=== PATIENT | male | born 1965 | race Caucasian/White ===

== ENCOUNTER 2024-02-13 07:40 | Outpatient (AMB) | payer MEDICAID, SELFPAY ==
[2024-02-13 08:02] VITALS: BP 135/88; PULSE 90; RESP 19; TEMP 36.4; O2SAT 95; BMI 31.7
--- NOTE | 2024-02-13 08:02 | ORTHONT_ITS ---
Vital signs 02/13/24 08:02 Height 1.88 m Height Method Stated Weight 112.264 kg Weight Measurement Method Standing Scale BMI 31.7 BP 135/88 H Blood Pressure Source Automatic Cuff Blood Pressure Location Right Upper Arm Position Sitting Respiration 19 Pulse 90 Pulse Source Monitor Temp 97.5 F Temp Source Temporal Artery Scan Pulse Oximetry (%) 95 Oxygen Delivery Method Room Air Med/Allergies Allergies & Medications Allergies No Known Allergies Allergy (Verified 02/13/24 08:03) Medication Reconciliation meloxicam 7.5 mg tablet 7.5 mg PO QDAY #45 tabs 02/13/24 [Rx] Subjective Visit Visit for: new patient and knee Immunization / Flu Flu Vaccine in the Last 12 Months: No Flu Vaccine Exclusion Criteria: Refused by Patient and No Exclusion Criteria History of Present Illness Chief complaint: BILATERAL KNEE PAIN Patient is a pleasant 58-year-old male with bilateral knee pain worse on the right. He has tried Ibuprofen. He would notices that there is some grinding and clicking in his knee. He reports the pain is still tolerable but quite annoying. He has not had formal physical therapy. 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 Exam Exam Patient is in no acute distress and is cooperative with the examination today. Breathing is nonlabored. In no respiratory distress. Bilateral extremities were evaluated and demonstrates sensation intact to light touch. Palpable pedal pulses are present. No significant edema is present. Bilateral hips were examined. The patient has no pain with log roll of the hips. Internal rotation to 30 degrees and external rotation to 30 degrees is painless. Negative FADIR. The left knee was examined. The left knee is in [varus] alignment. Range of motion from [0-115] degrees. Knee is stable to varus and valgus as well as AP translation with <5mm. Patient has a [negative] McMurrays. There is [no] pain with patellofemoral compression and [no] crepitus noted. The knee is [tender] to palpation [medially]. The right knee was also examined. The right knee is in [varus] alignment. Range of motion from [0-120] degrees. Knee is stable to varus and valgus as well as AP translation with <5mm. Patient has a [negative] McMurrays. There is [no] pain with patellofemoral compression and [no] crepitus noted. The knee is [tender] to palpation [medially]. Patient is nontender over the patella Bilateral knee x-rays were dated 12/14/2023. This demonstrates relatively preserved joint spaces. These are nonweightbearing x-rays. The x-ray report says that there is a age-indeterminate fracture I cannot see this. Assessment and Plan Problem List (1) Degenerative arthritis of knee, bilateral: Status: Acute Plan: Patient is a pleasant 58-year-old male with bilateral knee pain and likely bilateral knee arthritis. We are obtaining x-rays that are weightbearing and are waiting for his MRI to get done. We will see him back likely for injections at the next visit. 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
== END 2024-02-13 08:39 | disposition home or self-care (01) ==
PROVIDERS: Supervising Provider Orthopaedic Surgery Adult Reconstructive Orthopaedic Surgery; Visit Provider Orthopaedic Surgery Adult Reconstructive Orthopaedic Surgery
DX: M17.0 Bilateral primary osteoarthritis of knee (principal); M25.561 Pain in right knee; M25.562 Pain in left knee
CPT/HCPCS: 99203; G0463

== ENCOUNTER 2024-03-08 12:59 | Outpatient (AMB) | payer MEDICAID, SELFPAY ==
[2024-03-08 13:08] VITALS: BP 141/104; PULSE 99; RESP 19; TEMP 36.8; O2SAT 97; BMI 31.9
--- NOTE | 2024-03-08 13:08 | ORTHONT_ITS ---
Vital signs 03/08/24 13:08 Height 1.88 m Height Method Stated Weight 113.001 kg Weight Measurement Method Standing Scale BMI 31.9 BP 141/104 H Blood Pressure Source Automatic Cuff Blood Pressure Location Right Upper Arm Position Sitting Respiration 19 Pulse 99 Pulse Source Monitor Temp 98.2 F Temp Source Temporal Artery Scan Pulse Oximetry (%) 97 Oxygen Delivery Method Room Air Med/Allergies Allergies & Medications Allergies No Known Allergies Allergy (Verified 03/08/24 13:09) Medication Reconciliation meloxicam 7.5 mg tablet 7.5 mg PO QDAY #45 tabs 03/08/24 [Rx] Subjective Visit Visit for: follow up visit, knee (BILATERAL) and MRI (RESULTS) Immunization / Flu Flu Vaccine in the Last 12 Months: No Flu Vaccine Exclusion Criteria: No Exclusion Criteria History of Present Illness Chief complaint: MRI RESULTS/F.U BILATERAL KNEE PAIN Patient is a pleasant 58-year-old male with bilateral knee pain worse on the right. He has tried Ibuprofen. He would notices that there is some grinding and clicking in his knee. He reports the pain is still tolerable but quite annoying. He has not had formal physical therapy. 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 Exam Exam Patient is in no acute distress and is cooperative with the examination today. Breathing is nonlabored. In no respiratory distress. Bilateral extremities were evaluated and demonstrates sensation intact to light touch. Palpable pedal pulses are present. No significant edema is present. Bilateral hips were examined. The patient has no pain with log roll of the hips. Internal rotation to 30 degrees and external rotation to 30 degrees is painless. Negative FADIR. The left knee was examined. The left knee is in [varus] alignment. Range of motion from [0-115] degrees. Knee is stable to varus and valgus as well as AP translation with <5mm. Patient has a [negative] McMurrays. There is [no] pain with patellofemoral compression and [no] crepitus noted. The knee is [tender] to palpation [medially]. The right knee was also examined. The right knee is in [varus] alignment. Range of motion from [0-120] degrees. Knee is stable to varus and valgus as well as AP translation with <5mm. Patient has a [negative] McMurrays. There is [no] pain with patellofemoral compression and [no] crepitus noted. The knee is [tender] to palpation [medially]. Patient is nontender over the patella Bilateral knee x-rays were dated 12/14/2023. This demonstrates relatively preserved joint spaces. These are nonweightbearing x-rays. The x-ray report says that there is a age-indeterminate fracture I cannot see this. Bilateral knee MRIs were reviewed. This demonstrates degenerative meniscal tears on both knees. Assessment and Plan Problem List (1) Degenerative arthritis of knee, bilateral: Status: Acute Plan: Patient is a pleasant 58-year-old male with bilateral knee pain and likely bilateral knee arthritis. He has degenerative meniscal tears of both knees. We discussed nonoperative and operative options. We recommend anti-inflammatories and injections if needed. We will start on this for now. He does not have severe arthritis (2) Bilateral knee pain: Status: Acute Office Procedures GNS Level of Care Nursing/Assessment Patient Status: Established Patient Nursing Assessment/Reassesment: Medication Reconciliation, Update PMH in EMR and Vital Signs Coordination of Care: Complex Care and Chronic Disease 1-5, Education Complex Pt/Fam, Consent,records obtained, informed consent, 1 Ins Authorization, Results/Orders obtained and Staff clarify orders Established Patient Charge Established Patient Point Assignment: 110 Established Patient Point Charge: EP Level 3 (80-115) Past Medical History Past Medical History Have you ever been diagnosed with any of the following: Respiratory Problems Smoking: No Smoking Exposure: No
== END 2024-03-08 13:56 | disposition home or self-care (01) ==
PROVIDERS: Supervising Provider Orthopaedic Surgery Adult Reconstructive Orthopaedic Surgery; Visit Provider Orthopaedic Surgery Adult Reconstructive Orthopaedic Surgery
DX: M17.0 Bilateral primary osteoarthritis of knee (principal); M25.562 Pain in left knee; M25.561 Pain in right knee; S83.207D Unspecified tear of unspecified meniscus, current injury, left knee, subsequent encounter; S83.206D Unspecified tear of unspecified meniscus, current injury, right knee, subsequent encounter; X58.XXXD Exposure to other specified factors, subsequent encounter
CPT/HCPCS: 99213; G0463

== ENCOUNTER 2024-09-12 10:37 | Outpatient (AMB) | payer MEDICAID, SELFPAY ==
[2024-09-12 10:50] VITALS: BP 150/94; PULSE 89; RESP 18; TEMP 36.9; O2SAT 95; BMI 32.1
--- NOTE | 2024-09-12 10:50 | PD.ORTHCLVIS ---
Vital signs 09/12/24 10:50 Height 1.88 m Height Method Stated Weight 113.653 kg Weight Measurement Method Standing Scale BMI 32.1 BP 150/94 H Blood Pressure Source Automatic Cuff Blood Pressure Location Left Upper Arm Position Sitting Respiration 18 Pulse 89 Pulse Source Monitor Temp 98.4 F Temp Source Temporal Artery Scan Pulse Oximetry (%) 95 Oxygen Delivery Method Room Air Med/Allergies Allergies & Medications Allergies No Known Allergies Allergy (Verified 09/12/24 10:51) Medication Reconciliation meloxicam 7.5 mg tablet 7.5 mg PO QDAY #45 tabs 03/08/24 [Rx Confirmed 09/12/24] meloxicam 15 mg tablet 15 mg PO QDAY #60 tabs 09/12/24 [Rx] Exam Exam Patient is in no acute distress and is cooperative with the examination today. Breathing is nonlabored. In no respiratory distress. Bilateral extremities were evaluated and demonstrates sensation intact to light touch. Palpable pedal pulses are present. No significant edema is present. Bilateral hips were examined. The patient has no pain with log roll of the hips. Internal rotation to 30 degrees and external rotation to 30 degrees is painless. Negative FADIR. The left knee was examined. The left knee is in [varus] alignment. Range of motion from [0-115] degrees. Knee is stable to varus and valgus as well as AP translation with <5mm. Patient has a [negative] McMurrays. There is [no] pain with patellofemoral compression and [no] crepitus noted. The knee is [tender] to palpation [medially]. The right knee was also examined. The right knee is in [varus] alignment. Range of motion from [0-120] degrees. Knee is stable to varus and valgus as well as AP translation with <5mm. Patient has a [negative] McMurrays. There is [no] pain with patellofemoral compression and [no] crepitus noted. The knee is [tender] to palpation [medially]. Patient is nontender over the patella Bilateral knee x-rays were dated 12/14/2023. This demonstrates relatively preserved joint spaces. These are nonweightbearing x-rays. The x-ray report says that there is a age-indeterminate fracture I cannot see this. Bilateral knee MRIs were reviewed. This demonstrates degenerative meniscal tears on both knees. Assessment and Plan Problem List (1) Degenerative arthritis of knee, bilateral: Status: Acute Plan: Patient is a pleasant 58-year-old male with bilateral knee pain and likely bilateral knee arthritis. He has degenerative meniscal tears of both knees. We discussed nonoperative and operative options. I would like to get a weightbearing x-ray today. I would also like to get authorization for injections at the next visit. He would like to try them now. (2) Bilateral knee pain: Status: Acute Office Procedures GNS Level of Care Nursing/Assessment Patient Status: Established Patient Nursing Assessment/Reassesment: Medication Reconciliation, Update PMH in EMR and Vital Signs Coordination of Care: Complex Care and Chronic Disease 1-5, Education Complex Pt/Fam, Consent,records obtained, informed consent, Results/Orders obtained and Staff clarify orders Established Patient Charge Established Patient Point Assignment: 95 Established Patient Point Charge: Level 3 (80-115) MA Intake Visit Data Collection New Patient or Established: Established Patient (seen at [facility] within 3 years) Reason for Visit:: BL KNEE F/U REQ RX REFILLS Seen by Clinical Staff ONLY (RN/MA): No PCP or OBGYN visit in last 3 months: Yes Hx Now: No Do You Feel Safe at Home: Yes Authorities Contacted: N/A Questionairres Past Medical History Past Medical History Have you ever been diagnosed with any of the following: Respiratory Problems Smoking: No Smoking Exposure: No Subjective Visit Visit for: follow up visit, knee (BILATERAL) and other (specify) (RX REFILLS) Immunization / Flu Flu Vaccine in the Last 12 Months: No Flu Vaccine Exclusion Criteria: No Exclusion Criteria History of Present Illness Chief complaint: bl knee pain Pain Pain level (0-10): 6 Pain duration: ON AND OFF Pain location: inside (medial), outside (lateral) and anterior Pain quality: sharp, dull and aching Pain timing: night and increases with activity Associated signs & symptoms: none Ambulatory data Ambulatory device: none Treatments Improvement with previous injections: No Improvement with PT: No Improvement with NSAIDS: no Review of Systems Review of Systems: All systems negative unless otherwise noted in HPI.
--- NOTE | 2024-09-12 11:03 | XR_ITS ---
Examination: Bilateral knees 2 views Right lateral knee left lateral knee 2 views Bilateral axial knees single view TECHNIQUE: Bilateral AP knees standing single view, bilateral PA knees standing single view flexion Standing right lateral knee left lateral knee 2 views Bilateral axial knees single view total 5 views Date and time: September 12, 2024 1115 hours INDICATIONS: Bilateral knee pain beginning 2 weeks ago. FINDINGS: Bilateral moderate narrowing medial joint spaces No fractures Moderate narrowing bilateral patellofemoral joints No patellar dislocation IMPRESSION: Bilateral moderate narrowing medial joint spaces Bilateral moderate narrowing patellofemoral joints
== END 2024-09-12 11:07 | disposition home or self-care (01) ==
LOC: HODSRG 10:37
PROVIDERS: Supervising Provider Orthopaedic Surgery Adult Reconstructive Orthopaedic Surgery; Visit Provider Orthopaedic Surgery Adult Reconstructive Orthopaedic Surgery
DX: M17.0 Bilateral primary osteoarthritis of knee (principal)
CPT/HCPCS: 73564; 99213; G0463

== ENCOUNTER 2024-10-01 08:42 | Outpatient (AMB) | payer MEDICAID, SELFPAY ==
[2024-10-01 08:57] VITALS: BP 156/98; PULSE 80; RESP 18; TEMP 36.4; O2SAT 95; BMI 32.3
--- NOTE | 2024-10-01 08:57 | PD.ORTHCLVIS ---
Vital signs 10/01/24 08:57 Height 1.88 m Height Method Stated Weight 114.419 kg Weight Measurement Method Standing Scale BMI 32.3 BP 156/98 H Blood Pressure Source Automatic Cuff Blood Pressure Location Left Upper Arm Position Sitting Respiration 18 Pulse 80 Pulse Source Monitor Temp 97.5 F Temp Source Temporal Artery Scan Pulse Oximetry (%) 95 Oxygen Delivery Method Room Air Med/Allergies Allergies & Medications Allergies No Known Allergies Allergy (Verified 10/01/24 08:58) Medication Reconciliation meloxicam 15 mg tablet 15 mg PO QDAY #60 tabs 09/12/24 [Rx] Exam Exam Patient is in no acute distress and is cooperative with the examination today. Breathing is nonlabored. In no respiratory distress. Bilateral extremities were evaluated and demonstrates sensation intact to light touch. Palpable pedal pulses are present. No significant edema is present. Bilateral hips were examined. The patient has no pain with log roll of the hips. Internal rotation to 30 degrees and external rotation to 30 degrees is painless. Negative FADIR. The left knee was examined. The left knee is in [varus] alignment. Range of motion from [0-115] degrees. Knee is stable to varus and valgus as well as AP translation with <5mm. Patient has a [negative] McMurrays. There is [no] pain with patellofemoral compression and [no] crepitus noted. The knee is [tender] to palpation [medially]. The right knee was also examined. The right knee is in [varus] alignment. Range of motion from [0-120] degrees. Knee is stable to varus and valgus as well as AP translation with <5mm. Patient has a [negative] McMurrays. There is [no] pain with patellofemoral compression and [no] crepitus noted. The knee is [tender] to palpation [medially]. Patient is nontender over the patella Bilateral knee x-rays were dated 12/14/2023. This demonstrates relatively preserved joint spaces. These are nonweightbearing x-rays. The x-ray report says that there is a age-indeterminate fracture I cannot see this. Bilateral knee MRIs were reviewed. This demonstrates degenerative meniscal tears on both knees. Assessment and Plan Problem List (1) Degenerative arthritis of knee, bilateral: Status: Acute Plan: Patient is a pleasant 58-year-old male with bilateral knee pain and likely bilateral knee arthritis. He has degenerative meniscal tears of both knees. We discussed nonoperative and operative options. He is doing well with conservative treatment. He reports all the pain is gone away and he is very happy (2) Bilateral knee pain: Status: Acute Office Procedures GNS Level of Care Nursing/Assessment Patient Status: Established Patient Nursing Assessment/Reassesment: Medication Reconciliation, Update PMH in EMR and Vital Signs Coordination of Care: Complex Care and Chronic Disease 1-5, Education Complex Pt/Fam, Consent,records obtained, informed consent, Results/Orders obtained and Staff clarify orders Established Patient Charge Established Patient Point Assignment: 95 Established Patient Point Charge: EP Level 3 (80-115) MA Intake Visit Data Collection New Patient or Established: Established Patient (seen at [facility] within 3 years) Reason for Visit:: XRAY RESULTS/INJECTION Seen by Clinical Staff ONLY (RN/MA): No PCP or OBGYN visit in last 3 months: Yes Hx Now: No Do You Feel Safe at Home: Yes Authorities Contacted: N/A Questionairres Past Medical History Past Medical History Have you ever been diagnosed with any of the following: Respiratory Problems Smoking: No Smoking Exposure: No Subjective Visit Visit for: follow up visit, knee and x-rays Immunization / Flu Flu Vaccine in the Last 12 Months: No Flu Vaccine Exclusion Criteria: No Exclusion Criteria History of Present Illness Chief complaint: bl knee pain Patient reports that he is doing really well after his Anti-inflammatories. He is doing well Pain Pain level (0-10): 6 Pain duration: ON AND OFF Pain location: inside (medial), outside (lateral) and anterior Pain quality: sharp, dull and aching Pain timing: night and increases with activity Associated signs & symptoms: none Ambulatory data Ambulatory device: none Treatments Improvement with previous injections: No Improvement with PT: No Improvement with NSAIDS: no Review of Systems Review of Systems: All systems negative unless otherwise noted in HPI.
== END 2024-10-01 09:08 | disposition home or self-care (01) ==
PROVIDERS: Supervising Provider Orthopaedic Surgery Adult Reconstructive Orthopaedic Surgery; Visit Provider Orthopaedic Surgery Adult Reconstructive Orthopaedic Surgery
DX: M17.0 Bilateral primary osteoarthritis of knee (principal); M25.561 Pain in right knee; M25.562 Pain in left knee; S83.207A Unspecified tear of unspecified meniscus, current injury, left knee, initial encounter; S83.206A Unspecified tear of unspecified meniscus, current injury, right knee, initial encounter; X58.XXXA Exposure to other specified factors, initial encounter
CPT/HCPCS: 99213; G0463